=== PATIENT | female | born 1965 | race Caucasian/White ===

== ENCOUNTER 2022-05-13 04:33 | Emergency (ER) | payer OTHER ==
[~2022-05-13] VITALS: Ht 172.7 cm; Wt 74.4 kg
--- NOTE | 2022-05-13 04:46 | NUR ---
Dr. Parra at bedside for MSE.
[2022-05-13] MEDS ORDERED: ONDANSETRON 4 MG/2 ML VIAL ONE (04:53)
[2022-05-13] MEDS ORDERED: HYDROMORPHONE 1 MG/1 ML DISP.SYRIN ONE (04:54)
[2022-05-13] MEDS ORDERED: ONDANSETRON 4 MG/2 ML VIAL IV ONE (05:00)
[2022-05-13] MEDS ORDERED: IV NORMAL SALINE 1000 ML BAG IV ONE ×2 (05:00→06:00)
[2022-05-13] MEDS ORDERED: HYDROMORPHONE 1 MG/1 ML DISP.SYRIN IV ONE (05:00)
[2022-05-13 05:17] LABS: HEMATOCRIT 37.7 % (31.2-41.9); MEAN CORPUSCULAR HEMOGLOBIN 23.8 uug (24.7-32.8); MEAN CORPUSCULAR VOLUME 74.1 fL (75.5-95.3); PLATELET COUNT (AUTO) 367 K/uL (179-408)
[2022-05-13 05:20] LABS: CARBON DIOXIDE 27 mmol/L (21-32); CHLORIDE 97 mmol/L (98-107); POTASSIUM 3.8 mmol/L (3.5-5.1); UREA NITROGEN, BLOOD 12 mg/dL (7-18)
[2022-05-13 05:21] LABS: GLUCOSE 331 mg/dL (74-106)
[2022-05-13 05:28] LABS: *BILIRUBIN,URIN NEGATIVE (NEGATIVE); *BLOOD, URINE 1+ (NEGATIVE); *CLARITY,URINE CLEAR (CLEAR); *COLOR,URINE YELLOW (YELLOW); *KETONES,URINE NEGATIVE (NEGATIVE); *UROBILINOGEN,URINE 0.2 E.U./dl (NORMAL); LEUKOCYTE ESTERASE ,URINE 1+ (NEGATIVE); NITRITE, URINE NEGATIVE (NEGATIVE)
[2022-05-13 05:28] LABS: ALANINE AMINOTRANSFERASE 10 U/L (14-59); ALKALINE PHOSPHATASE 125 U/L (50-136); ASPARTATE AMINOTRANSFERASE < 5 U/L (15-37); BILIRUBIN,DIRECT 0.1 mg/dL (0.0-0.2); BILIRUBIN,TOTAL 0.1 mg/dL (0.2-1.0); LIPASE 128 U/L (73-393); TOTAL PROTEIN, SERUM 8.7 g/dL (6.4-8.2)
[2022-05-13 05:31] LABS: UGLUCOSE 3+ (NEGATIVE)
[2022-05-13 05:52] LABS: ETHANOL < 3 MG/DL (0-0)
[2022-05-13 05:53] LABS: ACETAMINOPHEN < 2.0 ug/mL (10-30)
[2022-05-13 05:57] LABS: *AMPHETAMINE, URINE POSITIVE (NEGATIVE); *CANNABINOID, URINE NEGATIVE (NEGATIVE); *COCCAINE, URINE NEGATIVE (NEGATIVE); *OPIATE, URINE NEGATIVE (NEGATIVE); *PHENCYCLIDINE SCREEN,URINE NEGATIVE (NEGATIVE)
[2022-05-13] MEDS ORDERED: CEFTRIAXONE 1 G in IV DEXTROSE 5% 50 ML IV ONE (06:00)
[2022-05-13] MEDS ORDERED: CEFTRIAXONE /D5W 50ML IVPB **ER PYXIS IV ONE (06:06)
[2022-05-13] MEDS ORDERED: DULA0.75 SQ (06:34)
--- NOTE | 2022-05-13 07:43 | NUR ---
Recieved pt in bed, resting comfortably w/ both closed, NAD noted.
[2022-05-13] MEDS ORDERED: MORPHINE SULFATE 4 MG/1 ML DISP.SYRIN ONE ×2 (08:24→12:47)
[2022-05-13] MEDS ORDERED: MORPHINE SULFATE 2 MG/1 ML DISP.SYRIN IV ONE ×2 (08:30→12:45)
[2022-05-13] MEDS ORDERED: HALOPERIDOL LACTATE 5 MG/1 ML VIAL IM ONE (09:15)
[2022-05-13 10:04] LABS: BACTERIA,URINE FEW /HPF (NONE SEEN); SQUAMOUS EPITHELIAL CELL,UR FEW /HPF (NONE SEEN); YEAST,URINE RARE /HPF (NONE SEEN)
--- NOTE | 2022-05-13 10:38 | NUR ---
DR Greene spoke to Dr Dobbs from [facility] for possible transfer. Awaiting call back.
--- NOTE | 2022-05-13 12:16 | NUR ---
Recieved a call from [facility]. Pt will be admitted to room 2269. Placed a call for BLS transfer, By Helene ETA 30 min.
[2022-05-13] MEDS ORDERED: HALOPERIDOL LACTATE 5 MG/1 ML VIAL ONE (12:32)
--- NOTE | 2022-05-13 12:45 | NUR ---
Report given to Luh KING at [facility], room 2261.
--- NOTE | 2022-05-13 13:10 | NUR ---
Pt left ER via gurney, report given to transporting station baggage agent, all belongings sent w/ patient.
== END 2022-05-13 13:25 | disposition short-term general hospital (02) ==
LOC: ER 04:43
DX: N15.1 Renal and perinephric abscess (principal); Z59.00 Homelessness unspecified; Z87.442 Personal history of urinary calculi; E11.65 Type 2 diabetes mellitus with hyperglycemia; Z20.822 Contact with and (suspected) exposure to COVID-19; M06.9 Rheumatoid arthritis, unspecified; E11.40 Type 2 diabetes mellitus with diabetic neuropathy, unspecified; R00.0 Tachycardia, unspecified; R59.0 Localized enlarged lymph nodes
CPT/HCPCS: 36415; 74176; 80048; 80076; 80299; 80307; 80320; 81001; 82962; 83605 ×2; 83690; 84484; 85025; 87040 ×2; 87086; 87426; 93005; 96361; 96365; 96372; 96375; 96376; 99285; J0696; J1170; J1630; J2270 ×2; J2405; J7040 ×4; A4663; G0480